=== PATIENT | female | born 2000 | race Hispanic/Latino ===

== ENCOUNTER 2022-04-13 13:25 | Emergency (ER) | payer OTHER ==
--- OUTSIDE RECORDS SUMMARY | 2022-04-13 13:29 | XMS REPORT | Continuity of Care Document ---
:2000 Author Organization [facility] t Address [address] [place] [address] Care Team Providers Name Role Phone PETRA PATE Primary Care Physician Unavailable ANDREY REYES Attending Clinician Unavailable MERI POP Attending Clinician Unavailable Wilian Jordan MD Attending Clinician Meri Pop DO Attending Clinician Petra Nash Attending Clinician PETRA PATE Attending Clinician Unavailable MERI POP Admitting Clinician Unavailable Meri Pop DO Admitting Clinician Payers Payer Name Policy Type Policy Number Effective Date Expiration Date [facility] [id number] 2020 [facility] MEDICAID 00:00:00 Problems Condition Condition Condition Status Onset Resolution Last Treating Co mments Source Name Details Category Date Date Treatment Clinician Date Disease Active 2020-09 Univers (spontaneo (spontaneo 2-12 it y of [place] vaginal [place] delivery[place] [facility] Single Single Disease Active 2020-09 Univers liveborn liveborn 2-12 ity of infant 00:00: [address] 38 weeks 38 weeks Disease Active 2020-09 Unive rs gestation gestation 2-10 ity of of of 00:00: [place] [facility] History of History of Disease Active 2020-09 U nivers placenta placenta 2-10 ity of previa previa 00:00: [address] Anemia of Anemia of Disease Active 2020-09 Uni vers mother in mother in 2-06 [place] , , [place] ante[place] antepartum 00 La dical Branch High-risk High-risk Disease Active Uni vers 5-11 ity of in first in first 00:00: [place] trimester trimester 00 Medi binu Branch Multiparit Multiparit Disease Active U nivers y y 5-11 ity of 00:00: [place] [address] Medical Branch Short Short Disease Active Univers interval interval 5-11 ity of between between 00:00: [place] pregnancie pregnancie 00 Me dical s s Branch affecting affecting in first in first trimester, trimester, antepartum antepartum IUGR IUGR Disease Active 2019-09 Univers (intrauter (intrauter 1-25 it y of ine growth ine [place] restrictio restrictio 00 Me dical n) n) Branch affecting affecting care of care of mother mother Allergies, Adverse Reactions, Alerts Allergy Allergy Status Severity Reaction(s) Onset Inactive Treating Comm ents Source Name Type Date Date Clinician NO KNOWN Drug Active Univers ALLERGIE Class ity of S [facility] Social History Social Habit Start Date Stop Date Quantity Comments Source ASSERTION 2020-12-04 [facility] 00:00:00 [facility] Exposure to Not sure [facility] SARS-CoV-2 [facility] [place] [facility] (event) [place] Alcohol intake 2021-08-13 2021-08-[address] [facility] 00:00:00 00:00:00 (finding) [facility] Tobacco use and 2020-04-14 2020-04-14 Never used Universit y of exposure 00:00:00 00:00:00 [facility] Sex Assigned At 2000 2000 Universit y of 00:00:00 00:00:00 [facility] Smoking Status Start Date Stop Date Source Never smoker [facility] Medications Ordered Filled Start Stop Current Ordering Indication Dosage Frequency Signature Comments Components Source Medication Medication Date Date Medication? Clinician (SIG) Name Name 2020-09 Yes [id number] 1{tbl} Take 1 Univers vitamin 2-12 tablet by ity of w/FA tablet 00:00: mouth [place] 00 daily. Medical Branch docusate 2020-09 Yes [id number] 240mg Take 1 U nivers calcium 240 2-12 capsule by it y of mg capsule 00:00: mouth [place] 00 daily as Medical needed for Branch Constipati on. ferrous 2020-09 Yes [id number] 325mg Take 1 Un ellen sulfate 325 2-12 tablet by ity of mg (65 mg 00:00: mouth 2 [place] iron) 00 (two) Medical tablet times Branch daily. ibuprofen 2020-09 Yes [id number] 600mg Take 1 Univers 600 mg 2-12 tablet by ity of tablet 00:00: mouth [place] 00 every 6 Medical (six) Branch hours as needed (Pain). Take with food or milk. rho(D) 2020-09 Yes 300ug 300 mcg, Univer s immune 2-11 Intramuscu ity of globulin 15:47: lar, ONCE, [place] as (RHOGAM) 22 For 1 Medical syringe 300 dose, Branch mcg Conditiona l, Routine ondansetron 2020-09 Yes 4mg 4 mg, Slow Univers (ZOFRAN 2-11 IV Push, ity of (PF)) 15:47: Q8HPRN, [place] injection 4 19 Starting Medi binu mg on Sat Branch 08/14/21 at 0947, Until Discontinu ed, Routine, Nausea and Vomiting (N/V) simethicone 2020-09 Yes 160mg 160 mg, Un ellen (GAS RELIEF 2-11 Oral, ity of (SIMETHICON 15:47: PC+HSPRN, [place] E)) 19 Starting Medical chewable on Sat Branch tablet 160 08/14/21 mg at 0947, Until Discontinu ed, Routine, Gas magnesium 2020-09 Yes 30mL 30 mL, Univer s hydroxide 2-11 Oral, ity of (MILK OF 15:47: QDAILYPRN, [place] MAGNESIA) 19 Starting Medica l 400 mg/5 mL on Sat Branch suspension 08/14/21 30 mL at 0947, Until Discontinu ed, Routine, Constipati on diphenhydrA 2020-09 Yes 25mg 25 mg, Univ ers MINE 2-11 Oral, ity of (BENADRYL) 15:47: Q6HPRN, [place] tablet 25 18 Starting Medica l mg on Sat Branch 08/14/21 at 0947, Until Discontinu ed, Routine, Sleep, Itching diphenhydrA 2020-09 Yes 25mg 25 mg, IV U nivers MINE-0.9 % 2-11 Piggyback, ity of sod.chlr 15:47: Administer [place] (BENADRYL) 18 over 30 Medica l 25 mg/50 mL Minutes, Bran ch piggyback Q6HPRN, 25 mg Starting on 08/14/21 at 0947, Until Discontinu ed, Routine, Itching docusate 2020-09 Yes 240mg 240 mg, Unive rs calcium 2-11 Oral, ity of (SURFAK) 15:47: QDAILYPRN, [place] capsule 240 18 Starting Medi binu mg on Sat Branch 08/14/21 at 0947, Until Discontinu ed, Routine, Constipati on benzocaine- 2020-09 Yes Topical, Un ellne menthol 2-11 PRN, ity of (DERMOPLAST 15:47: [place] ) 20-0.5 % 18 on [facility] Medical topical 08/14/21 Branch spray at 0947, Until Discontinu ed, Routine, Perineum discomfort oxytocin 2020-09- No at 999 Univer s (PITOCIN) 2-11 12-11 mL/hr, IV ity of 40 Units in 14:45: 14:45 Infusion, [place] lactated 00 :00 ONCE, 1 Medical ringers dose, On Branch 1,000 mL IV Sat infusion 08/14/21 at 0845, Routine ibuprofen 2020-09 Yes 600mg 600 mg, Univ ers (IBU) 2-11 Oral, ity of tablet 600 13:35: Q6HPRN, [place] mg 52 Starting Medical on Sat Branch 08/14/21 at 0735, Until Discontinu ed, Routine, Pain (scale 4-6) acetaminoph 2020-09 Yes 650mg 650 mg, Un ellen en 2-11 Oral, ity of (TYLENOL) 13:35: Q6HPRN, [place] tablet 650 52 Starting Medic al mg on Sat Branch 08/14/21 at 0735, Until Discontinu ed, Routine, Pain (scale 1-3) ibuprofen 2020-09 Yes 600mg 600 mg, Univ ers (IBU) 2-11 Oral, ity of tablet 600 13:16: Q6HPRN, [place] mg 14 Starting Medical on Sat Branch 08/14/21 at 0716, Until Discontinu ed, Routine, Pain (scale 1-3) proMETHazin 2020-09 No 25mg 25 mg, IV Univers e 10-15 Piggyback, ity of (PHENERGAN) 12:15: 12:20 ONCE, 1 [place] 25 mg in 00 :00 dose, On Medical NaCl 0.9% Sat Branch (NS) 50 mL 08/14/21 IV at 0615, piggyback Routine nalbuphine 2020-09 No 10mg 10 mg, Univ ers (NUBAIN) 10-15 Intravenou ity of injection 12:15: 11:13 s, ONCE, 1 [place] 10 mg 00 :00 dose, On Medical Sat Branch 08/14/21 at 0615, Routine D5W-LR IV 2020-09 Yes 1000mL at 125 Univ ers infusion 2-11 mL/hr, IV ity of 1,000 mL 02:30: Infusion, [place] 00 CONTINUOUS Medical , Starting Branch on Mon08/13/21 at 2030, Until Discontinu ed, Routine LR 1000 mL 2020-09 Yes 2mU/min at 6-120 Univers + oxytocin 2-11 mL/hr, IV ity of 20 units IV 02:22: Infusion, [place] Solution 47 TITRATE, Medical Starting Branch on Mon08/13/21 at 2021, Until Discontinu ed, LEI sodium 2020-09 Yes 30mL 30 mL, Univers citrate-cit 2-11 Oral, ity of cuauhtemoc acid 02:21: PRE-PROCED [place] (BICITRA) 33 URE ONCE, Medic al 500-334 1 dose, Branch mg/5 mL Starting solution 30 on Mon mL 08/13/21 at 2020, Until Discontinu ed, Routine, Surgery/Pr ocedure lidocaine 2020-09 Yes 50mL 50 mL, Univer s 1% 2-11 Infiltrati ity of (XYLOCAINE) 02:21: on, PRN - [place] 10 mg/mL (1 33 SEE Medical %) INSTRUCTIO Branch injection NS, 50 mL Starting on Mon08/13/21 at 2020, Until Discontinu ed, Routine, Local anesthesia , For laceration repair only as a local anesthetic as indicated. lidocaine 2020-09 Yes .3mL 0.3 mL, Unive rs 1% (PF) 2-11 Infiltrati ity of (XYLOCAINE) 02:21: on, PRN - [place] injection 33 SEE Medical 0.3 mL INSTRUCTIO Branch NS, Starting on Mon08/13/21 at 2020, Until Discontinu ed, Routine, Local anesthesia , For IV line placement only as a local anesthetic . lactated 2020-09 Yes 500mL at 999 Univer s ringers IV 2-11 mL/hr, 500 ity of infusion 02:21: mL, IV [place] 500 mL 33 Infusion, Medical PRN - SEE Branch INSTRUCTIO NS, Starting on Mon08/13/21 at 2020, Until Discontinu ed, Routine ferrous 2020-09 Yes [id number] 325mg Take 1 Un ellen sulfate 325 2-06 tablet by ity of mg (65 mg 00:00: mouth 2 [place] iron) 00 (two) Medical tablet times Branch daily. ascorbic 2020-09 Yes [id number] 500mg Take 1 U nivers acid, 2-06 tablet by ity of vitamin C, 00:00: [place] 500 mg 00 (three) Medical tablet times Branch daily. ascorbic 2020-09 Yes [id number] 500mg Take 1 U nivers acid, 2-06 tablet by ity of vitamin C, 00:00: [place] 500 mg 00 (three) Medical tablet times Branch daily. ferrous 2020-09- No [id number] 325mg Take 1 U nivers sulfate 325 2-06 12-12 tablet by it y of mg (65 mg 00:00: 00:00 [place] iron) 00 :00 (two) Medical tablet times Branch daily. PNV 67-iron Yes [id number] 1{capsu Take 1 Univers ps-folate 5-11 le} capsule by ity of no.1-dha 00:00: mouth [place] (VITAFOL 00 daily. Medical ULTRA) 29 Branch mg iron- 1 mg-200 mg Cap PNV 67-iron 202- No [id number] 1{capsu Take 1 Univers ps-folate 5-11 12-12 le} capsule by ity of no.1-dha 00:00: 00:00 mouth [place] (VITAFOL 00 :00 daily. Medical ULTRA) 29 Branch mg iron- 1 mg-200 mg Cap Immunizations Ordered Filled Immunization Date Status Comments Sourc e Immunization Name Name TD 2021-06-10 Completed University of 00:00:00 [facility] Influenza Virus 2021-06-10 Completed Universit y of Vaccine Quad IM, 00:00:00 [facility] dical Preserv and ABX Branch Free 6 MO-64 YRS TDAP 2021-06-10 Completed University of 00:00:00 [facility] Influenza Virus 2021-06-10 Completed Universit y of Vaccine Quad IM, 00:00:00 [facility] dical Preserv and ABX Branch Free 6 MO-64 YRS HPV9 2020-08-01 Completed University 00:00:00 [facility] HPV9 2020-08-01 Completed University of 00:00:00 [facility] Influenza Virus 2020-06-16 Completed Universit y of Vaccine Quad .5 mL 00:00:00 [facility] 6+ MO Branch Influenza Virus 2020-06-16 Completed Universit y of Vaccine Quad .5 mL 00:00:00 [facility] 6+ MO Branch TDAP 2020-06-02 Completed University 00:00:00 [facility] TDAP 2020-06-02 Completed University 00:00:00 [facility] Vital Signs Vital Name Observation Time Observation Value Comments Source Systolic blood 2021-08-15 14:54:00 104 mm[Hg] Univer sity of pressure [facility] Diastolic blood 2021-08-15 14:54:00 59 mm[Hg] Unive rsity of pressure [facility] Heart rate 2021-08-15 14:54:00 75 /min [facility] Body temperature 2021-08-15 14:54:00 36.44 [facility] Respiratory rate 2021-08-15 14:54:00 18 /min [facility] Oxygen saturation in 2021-08-15 14:54:00 99 /min [facility] Arterial blood by [facility] Pulse oximetry [place] Body weight 2021-08-14 02:04:00 64.8 kg [facility] Procedures Procedure Date / Time Performing Clinician Source Performed CBC WITH DIFF 2021-08-15 10:09:00 Flo Garcia [facility] VENOUS CORD GAS 2021-08-14 13:15:00 Kendy Wetzel [facility] CBC WITH DIFF 2021-08-14 03:26:00 [facility] HEPATITIS B SURFACE 2021-08-14 03:26:00 Kendy Wetzel [facility] ANTIGEN [facility] HB ABO GROUPING 2021-08-14 03:26:00 [facility] RHO (D) IMMUNE GLOBULIN 2021-08-14 03:26:00 JenusaitisAlejandrakelly Uni [facility] GALV ONLY - SYPHILIS 2021-08-14 03:26:[address] [facility] IGG/IGM [facility] COVID-19 (ID NOW RAPID 2021-08-14 02:09:00 Meri Pop [facility] TESTING) [facility] LAB ONLY COVID 2021-08-14 02:09:00 Meri Pop [facility] INTERPRETATION [facility] Encounters Start End Encounter Admission Attending Care Care Encounter Source Date/Time Date/Time Type Type Clinicians Facility Department ID 2021-09-27 2021-09-27 [id number] Univers 14:45:00 [facility]:45[facility] [id number] 2021-09-27 2021-09-27 [facility] [id number] Univers 14:45:00 14:45:[address] [facility] [facility] 2021-08-13 2021-08-15 Inpatient P LINDA [facility] [id number] Univers 19:46:00 16:49:00 MERI [facility] [place] [facility] 2021-08-13 2021-08-15 Hospital Wilian Jordan [id number] Univers 19:46:00 16:49:00 Encounter Meri Ppo [id number] ity [facility] [id number] [place] [id number] [place] [id number] Branch 2021-08-13 2021-08-13 Telephone [facility] [id number] Univers 00:00:00 00:00:00 Petra Jose SENIOR PROGRAMMER [id number] it y of REGIONAL [id number] [place] as MATERNAL [id number] Med ical & CHILD [address] [place] [address] 2021-08-10 2021-08-10 Outpatient Deep [facility] [id number] Univers 12:45:00 12:45:00 PETRA garcía of [facility] Results Test Description Test Time Test Comments Results Result Comments Source CBC with Differential 2021-08-15 10:22:58 Test Item Value Reference Range Interpretation Comme nts WBC (test code = 6690-2) See_Comment H [A utomated message] The system which ge nerated this result transmit brenna reference range: 4.30 - 1 1.10 10*3/?L. The reference r quirino was not used to interpr et this result as normal/abnor mal. RBC (test code = 789-8) See_Comment L [Au tomated message] The system which ge nerated this result transmit brenna reference range: 3.93 - 5 .25 10*6/?L. The reference r quirino was not used to interpr et this result as normal/abnor mal. HGB (test code = 718-7) 9.8 g/dL 11.6-15.0 L HCT (test code = 4544-3) 29.2 % 35.7-45.2 L MCV (test code = 787-2) 82.5 fL 80.6-95.5 MCH (test code = 785-6) 27.7 pg 25.9-32.8 MCHC (test code = 786-4) 33.6 g/dL 31.6-35.1 RDW-SD (test code = 33972-2) 35.8 fL 39.0-49.9 L RDW-CV (test code = 788-0) 11.9 % 12.0-15.5 L PLT (test code = 777-3) See_Comment [Au tomated message] The system which ge nerated this result transmit brenna reference range: 166 - 35 8 10*3/?L. The reference range was not used to interpret th is result as normal/abnormal . MPV (test code = 16030-9) 11.0 fL 9.5-12.9 NRBC/100 WBC (test code = See_Comment [ Automated message] The 1340995673) system which ge nerated this result transmit brenna reference range: 0.0 - 10 .0 /100 WBCs. The reference r quirino was not used to interpr et this result as normal/abnor mal. NRBC x10^3 (test code = <0.01 See_Comment [Au tomated message] The 3954569981) system which ge nerated this result transmit brenna reference range: 10*3/?L. The reference range was not u sed to interpret this result as normal/abnormal . GRAN MAT (NEUT) % (test code 66.5 % = 770-8) IMM GRAN % (test code = 0.40 % 6238988958) LYMPH % (test code = 736-9) 24.7 % MONO % (test code = 5905-5) 7.4 % EOS % (test code = 713-8) 0.6 % BASO % (test code = 706-2) 0.4 % GRAN MAT x10^3(ANC) (test 7.50 10*3/uL 1.88-7.09 H code = 6083697091) IMM GRAN x10^3 (test code = 0.05 10*3/uL 0.00-0.06 3102498302) LYMPH x10^3 (test code = 2.79 10*3/uL 1.32-3.29 731-0) MONO x10^3 (test code = 0.84 10*3/uL 0.33-0.92 742-7) EOS x10^3 (test code = 0.07 10*3/uL 0.03-0.39 711-2) BASO x10^3 (test code = 0.04 10*3/uL 0.01-0.07 704-7) Lab Interpretation (test Abnormal code = 77684-9) [facility] [place] [id number] 16:03:12 Test Item Value Reference Range Interpretation Comments Syphilis IgG/IgM (test Non-reactive Non-reactive code = 23079-2) KIRILL (test code = KIRILL) Non-reactive - No serologic evidence of T. pallidum infection. Cannot exclude incubating or early syphilis. Submit a second specimen in 2-4 weeks if syphilis is clinically suspected. Equivocal - Further testing to follow. Reactive - Further testing to follow. Lab Interpretation (test Normal code = 43415-9) [facility] IMMUNE [id number] 15:52:16 Test Item Value Reference Range Interpretation Comments RHIG CANDIDATE? No- see comment Patient i s not a (test code = candidate for R hIg- 5055) Patient is Rh Positive.Perfor med at [facility] Laboratory Services - [facility] Blood [address] [place] [address]Mqec Free: [phone] A No. [id number] [facility] CORD [id number] 13:26:48 Test Item Value Reference Range Interpretation Comments VENOUS BASE EXCESS, mEq/L CORD (test code = 4566039651) VENOUS PH, CORD (test 7.25-7.45 code = 5827465533) VENOUS PC02, CORD See_Comment [Automate d message] The (test code = system which ge nerated 8968189940) this result tra nsmitted reference range : 27 - 49 mmHg. The refer ence range was not used to interpret this result as normal/abnormal . VENOUS PO2, CORD (test See_Comment [Aut omated message] The code = 1194720265) system wh ich generated this result tra nsmitted reference range : 17 - 41 mmHg. The refer ence range was not used to interpret this result as normal/abnormal . VENOUS BICARBONATE, See_Comment QUES [Au tomated message] CORD (test code = The system which generated 7451871234) this result tra nsmitted reference range : 12 - 29 mEq/L. The refe rence range was not used to interpret this result as normal/abnormal . [facility] CORD [id number] 13:25:53 Test Item Value Reference Range Interpretation Comments BASE EXCESS, CORD mEq/L QUES (test code = 8549841093) AC PH, CORD (BEAKER) 7.18-7.38 (test code = 8049242661) PC02, CORD (test code See_Comment [Auto mated message] The = 3349303900) system which g enerated this result transmit brenna reference range : 32 - 66 mmHg. The refer ence range was not used to interpret this result as normal/abnormal . PO2, CORD (test code See_Comment [Autom ated message] The = 5061296466) system which g enerated this result transmit brenna reference range : 10 - 30 mmHg. The refer ence range was not used to interpret this result as normal/abnormal . BICARBONATE, CORD See_Comment [Automate d message] The (test code = system which ge nerated this 6743466831) result transmit brenna reference range : 17 - 27 mEq/L. The refe rence range was not used to interpret this result as normal/abnormal . [facility]atitis B Surface [id number] 04:31:18 Test Item Value Reference Range Interpretation Comments HBsAg Semi-Quantitative (test code = Negative Negative 5195-3) [facility] and Screen - ONCE [id number] 04:15:35 Test Item Value Reference Range Interpretation Comments ABO & RH (test code O POSITIVE Performe d at [facility] = 20) Laboratory Serv [facility] Blood Bank3 [address] [facility] [place] [facility] s [address]Ximn Free: [phone] A No. [id number] IAT (test code = Negative Performed a t [facility] 1185) Laboratory Serv [facility] Blood [facility]3 [address] [facility] [place] [facility] s [address]Uxly Free: [phone] A No. [id number] [facility] WITH [id number] 03:37:52 Test Item Value Reference Range Interpretation Comments WBC (test code = See_Comment [Automated 9790-2) message] The sy stem which generated this result transmitted reference range : 4.30 - 11.10 10*3/?L. The reference range was not used to interpret this result as normal/abnormal . RBC (test code = See_Comment L [Automated 659-8) message] The sy stem which generated this result transmitted reference range : 3.93 - 5.25 10*6/?L. The reference range was not used to interpret this result as normal/abnormal . HGB (test code = 10.0 g/dL 11.6-15.0 L 718-7) HCT (test code = 30.1 % 35.7-45.2 L 4544-3) MCV (test code = 82.5 fL 80.6-95.5 787-2) MCH (test code = 27.4 pg 25.9-32.8 785-6) MCHC (test code = 33.2 g/dL 31.6-35.1 786-4) RDW-SD (test code = 36.1 fL 39.0-49.9 L 45284-7) RDW-CV (test code = 12.0 % 12.0-15.5 788-0) PLT (test code = See_Comment [Automated 777-3) message] The sy stem which generated this result transmitted reference range : 166 - 358 10*3/ ?L. The reference r quirino was not used to interpret this result as normal/abnormal . MPV (test code = 10.8 fL 9.5-12.9 23161-3) NRBC/100 WBC (test See_Comment [Automat ed code = 9705814410) message] The system which generated this result transmitted reference range : 0.0 - 10.0 /100 WBCs. The refer ence range was not u sed to interpret th is result as normal/abnormal . NRBC x10^3 (test code <0.01 See_Comment [Auto mated = 9853701283) message] The s ystem which generated this result transmitted reference range : 10*3/?L. The reference range was not used to interpret this result as normal/abnormal . GRAN MAT (NEUT) % 67.0 % (test code = 770-8) IMM GRAN % (test code 0.30 % = 1892560649) LYMPH % (test code = 26.1 % 736-9) MONO % (test code = 5.7 % 5905-5) EOS % (test code = 0.7 % 713-8) BASO % (test code = 0.2 % 706-2) GRAN MAT x10^3(ANC) 6.55 10*3/uL 1.88-7.09 (test code = 1094233332) IMM GRAN x10^3 (test 0.03 10*3/uL 0.00-0.06 code = 5043318335) LYMPH x10^3 (test code 2.55 10*3/uL 1.32-3.29 = 731-0) MONO x10^3 (test code 0.56 10*3/uL 0.33-0.92 = 742-7) EOS x10^3 (test code = 0.07 10*3/uL 0.03-0.39 711-2) BASO x10^3 (test code <0.03 0.01-0.07 = 704-7) Lab Interpretation Abnormal (test code = 10132-4) [facility]
[2022-04-13] MEDS ORDERED: ACETAMINOPHEN 500 MG TAB ONE (14:23)
[2022-04-13] MEDS ORDERED: IBUPROFEN 400 MG TAB ONE (14:32)
[2022-04-13] MEDS ORDERED: BUPIVACAINE 0.5% PF 10 ML VIAL ONE (14:35)
[2022-04-13] MEDS ORDERED: LIDOCAINE 1% MPF 5 ML VIAL ONE (14:35)
--- NOTE | 2022-04-13 15:14 | RAD REPORT ---
EXAM DESCRIPTION: RAD - Foot Left 3 View - 04/13/2022 2:56 pm CLINICAL HISTORY: PAIN COMPARISON: No comparisons FINDINGS: No fracture, dislocation or periosteal reaction. No acute or destructive bony process. No air or foreign body in the soft tissues. IMPRESSION: No acute or destructive changes to the first toe. No air or foreign body in the soft tis sues.
--- NOTE | 2022-04-13 15:36 | ER ---
Nurse's Notes [facility] Name: Sindhu Hudson Age: 21 yrs Sex: Female : 2000 Arrival Date: 04/13/2022 Time: 13:30 Bed Treatment Private MD: Diagnosis: Cellulitis of left toe-left big toe Presentation: 04/13 13:58 Chief complaint: Patient states: left big toe infected on left aspect of toenail. ld1 Coronavirus screen: Vaccine status: Patient reports being unvaccinated. Ebola Screen: No symptoms or risks identified at this time. Initial Sepsis Screen: Does the patient meet any 2 criteria? No. Patient's initial sepsis screen is negative. Does the patient have a suspected source of infection? No. Patient's initial sepsis screen is negative. Risk Assessment: Do you want to hurt yourself or someone else? Patient reports no desire to harm self or others. Onset of symptoms was April 06, 2022. 13:58 Method Of Arrival: Ambulatory ld1 13:58 Acuity: MADELEINE 4 ld1 Triage Assessment: 14:00 General: Appears in no apparent distress. comfortable, Behavior is calm, cooperative, ld1 appropriate for age. Pain: Complains of pain in Left first toenail Pain radiates to dorsum of left foot and left first toe Pain currently is 7 out of 10 on a pain scale. Quality of pain is described as sharp, shooting, stabbing, Pain began 1 week ago Is intermittent, Alleviated by rest, repositioning, Aggravated by increased activity, weight bearing. Neuro: Level of Consciousness is awake, alert, obeys commands, Oriented to person, place, time, situation. Cardiovascular: Capillary refill < 3 seconds Patient's skin is warm and dry. Respiratory: Airway is patent Respiratory effort is even, unlabored. GI: No signs and/or symptoms were reported involving the gastrointestinal system. : No signs and/or symptoms were reported regarding the genitourinary system. Musculoskeletal: Range of motion: intact in all extremities, Swelling present in left first toe. 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 - Social history:: Smoking status: Patient denies any tobacco usage or history of. Patient/guardian denies using alcohol, street drugs. Screenin:02 Abuse screen: Denies threats or abuse. Denies injuries from another. Nutritional iw screening: No deficits noted. Tuberculosis screening: No symptoms or risk factors identified. Fall Risk None identified. Assessment: 15:02 General: Appears in no apparent distress. Behavior is calm, cooperative. Pain: iw Complains of pain in left first toe. Neuro: Young Agitation-Sedation Scale (RASS): 0 - Alert and Calm Level of Consciousness is awake, alert, obeys commands, Oriented to person, place, time, situation. Respiratory: Respiratory effort is even, unlabored, Respiratory pattern is regular. Derm: Musculoskeletal: Swelling present in left first toe and Left first toenail. Vital Signs: 13:58 BP 129 / 76; Pulse 86; Resp 18; Temp 97.1(TE); Pulse Ox 100% on R/A; Weight 65.77 kg; ld1 Height 5 ft. 1 in. (154.94 cm); Pain 7/10; 13:58 Body Mass Index 27.40 (65.77 kg, 154.94 cm) ld1 ED Course: 13:30 Patient arrived in ED. rg4 13:36 Fermin Sepulveda PA is PHCP. cp 13:36 Tera Rojas MD is Attending Physician. cp 14:00 Triage completed. ld1 14:00 Arm band placed on left wrist. ld1 14:13 Carmen Cabrera, RN is Primary Nurse. iw 15:02 XRAY Foot LEFT 3 View In Process Unspecified. EDMS 15:32 James Ramos DPM is Referral Physician. cp 15:48 Assist provider with nail repair of ingrown nail of left great toe Performed by Fermin iw Coco PADILLA. Patient did not have IV access during this emergency room visit. 15:49 Patient has correct armband on for positive identification. iw Administered Medications: 14:26 Not Given (taken PTAa): Tylenol 1000 mg PO once iw 14:26 Drug: Ibuprofen 800 mg Route: PO; iw 14:50 Follow up: Response: No adverse reaction iw Medication: 15:49 VIS not applicable for this client. iw Outcome: 15:35 Discharge ordered by . cp 15:48 Discharged to home ambulatory, with family. iw 15:48 Condition: good 15:48 Discharge instructions given to patient, Instructed on discharge instructions, follow up and referral plans. medication usage, Demonstrated understanding of instructions, follow-up care, medications, Prescriptions given X 2. 15:49 Patient left the ED. iw Signatures: Dispatcher [employer] EDCarmen Munson RN RN iw Fermin Sepulveda PA PA cp Garcia, Rubi rg4 Ruby Molina RN RN ld1
--- NOTE | 2022-04-13 15:36 | EDPHYS ---
Physician Documentation [facility] Name: Sidnhu Hudson Age: 21 yrs Sex: Female : 2000 Arrival Date: 04/13/2022 Time: 13:30 Bed Treatment Private MD: ED Physician Tera Rojas HPI: 04/13 14:20 This 21 yrs old Female presents to ER via Ambulatory with complaints of Toe cp Infection. 14:20 The patient presents with pain, that is acute, swelling, tenderness. The complaints cp affect the left first toe. Context: resulted from an unknown cause, the patient can fully bear weight, the patient is able to ambulate, with mild difficulty, Problem is a result from a previous injury: No. Onset: The symptoms/episode began/occurred 1 week(s) ago. Modifying factors: the symptoms are aggravated by weight bearing. Associated signs and symptoms: The patient has no apparent associated signs or symptoms. 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 - Social history:: Smoking status: Patient denies any tobacco usage or history of. Patient/guardian denies using alcohol, street drugs. ROS: 14:25 Constitutional: Negative for body aches, chills, fever, poor PO intake. cp 14:25 ENT: Negative for drainage from ear(s), ear pain, sore throat, difficulty swallowing, cp difficulty handling secretions. 14:25 Respiratory: Negative for cough, shortness of breath, wheezing. 14:25 Abdomen/GI: Negative for abdominal pain, nausea, vomiting, and diarrhea. 14:25 MS/extremity: Positive for erythema, pain, swelling, tenderness, of the left first toe, Negative for paresthesias. 14:25 All other systems are negative. Exam: 14:30 Constitutional: The patient appears in no acute distress, alert, awake, non-toxic, well cp developed, well nourished. 14:30 Head/Face: Normocephalic, atraumatic. cp 14:30 Cardiovascular: Rate: normal. 14:30 Respiratory: the patient does not display signs of respiratory distress, Respirations: normal, no use of accessory muscles, no retractions. 14:30 Abdomen/GI: Exam negative for discomfort, distension, guarding, Inspection: abdomen appears normal. 14:30 Musculoskeletal/extremity: Extremities: grossly normal except: noted in the left first toe: pain, swelling noted lateral side extending to plantar surface of left first toe, noted erythema, scant colored drainage, marked tenderness to palpation, ROM: full active range of motion, in the left first toe, Perfusion: the extremity is normally perfused throughout, the left first toe Sensation intact. Vital Signs: 13:58 BP 129 / 76; Pulse 86; Resp 18; Temp 97.1(TE); Pulse Ox 100% on R/A; Weight 65.77 kg; ld1 Height 5 ft. 1 in. (154.94 cm); Pain 7/10; 13:58 Body Mass Index 27.40 (65.77 kg, 154.94 cm) ld1 Procedures: 15:35 Digital block of left first toe performed using 6 ccs of mixture of 0.5% Marcaine and cp 1% lidocaine. Examination of digit shows removed lateral side of nail with no extension into lateral side of left first toe concerning for ingrown nail. MDM: 14:03 Patient medically screened. cp 15:35 Data reviewed: vital signs, nurses notes, radiologic studies, plain films. cp 15:35 Differential diagnosis: closed fracture, cellulitis, abscess, ingrown nail. Test cp interpretation: by ED physician or midlevel provider: plain radiologic studies. Counseling: I had a detailed discussion with the patient and/or guardian regarding: the historical points, exam findings, and any diagnostic results supporting the discharge/admit diagnosis, radiology results, the need for outpatient follow up, a barber, to return to the emergency department if symptoms worsen or persist or if there are any questions or concerns that arise at home. Response to treatment: the patient's symptoms have mildly improved after treatment. 04/13 14:08 Order name: XRAY Foot LEFT 3 View; Complete Time: 15:31 cp 04/13 15:31 Interpretation: Reviewed report. cp Administered Medications: 14:26 Not Given (taken PTAa): Tylenol 1000 mg PO once iw 14:26 Drug: Ibuprofen 800 mg Route: PO; iw 14:50 Follow up: Response: No adverse reaction iw Disposition Summary: 04/13/22 15:35 Discharge Ordered Location: Home cp Problem: new cp Symptoms: have improved cp Condition: Stable cp Diagnosis - Cellulitis of left toe - left big toe cp Followup: cp - With: James Ramos DPM - When: 2 - 3 days - Reason: Worsening of condition Discharge Instructions: - Discharge Summary Sheet cp - Cellulitis, Adult cp - Ingrown Toenail cp Forms: - Medication Reconciliation Form cp - Thank You Letter cp - Antibiotic Education cp - Prescription Opioid Use cp Prescriptions: - Clindamycin HCl 300 mg Oral Capsule - take 1 capsule by ORAL route every 6 hours for 10 days; 40 capsule; Refills: 0, cp Product Selection Permitted - Ibuprofen 800 mg Oral Tablet - take 1 tablet by ORAL route every 8 hours As needed take with food; 30 tablet; cp Refills: 0, Product Selection Permitted Signatures: Dispatcher [employer] Carmen Walden RN RN iw Fermin Sepulveda PA PA cp Ruby Molina RN RN ld1
[2022-04-13 16:21] VITALS: BP 129/76; TEMP 97.1; O2SAT 100
== END 2022-04-13 15:49 | disposition home or self-care (01) ==
LOC: ER 13:25
DX: L03.032 Cellulitis of left toe (principal)
CPT/HCPCS: 99284

== ENCOUNTER 2022-06-27 12:51 | Emergency (ER) | payer OTHER ==
--- OUTSIDE RECORDS SUMMARY | 2022-06-27 12:55 | XMS REPORT | Continuity of Care Document ---
:2000 Author Organization [facility] t Address [address] [place] [address] Care Team Providers Name Role Phone PETRA PATE Primary Care Physician Unavailable SERENITY REYES Attending Clinician Unavailable LIONEL JORDAN Attending Clinician Unavailable MERI MCKEON Attending Clinician Unavailable Lionel Jordan MD Attending Clinician Meri Mckeon DO Attending Clinician Ultrasound, Ang-m Attending Clinician Unavailable Petra Nash Attending Clinician PETRA PATE Attending Clinician Unavailable Ultrasound, Adc m Attending Clinician Unavailable Jihan Bernal MD Attending Clinician JIHAN BERNAL Attending Clinician Unavailable DANDRE CORTES Attending Clinician Unavailable TK MADSEN Attending Clinician Unavailable Tk Madsen MD Attending Clinician [phone] Su Bautista CNM Attending Clinician Doctor Unassigned, [place] Attending Clinician Unavailable Lab, [facility] Attending Clinician Unavailable Sandy Laguna MD, Gillis Attending Clinician [phone], [facility] Usg Room Attending Clinician Unavailable Elvie Falcon Attending Clinician Nurse, Sylvie Urgent Attending Clinician Unavailable UNKNOWN, ATTENDING Attending Clinician Unavailable Unknown, Attending Attending Clinician Unavailable Peterson Marc MD Attending Clinician Reyes R D INTERN, Serenity Adame Attending Clinician Jonh ATKINS, Kevin Reinoso Attending Clinician Lilia Sandoval MD Attending Clinician Lab, [facility] Attending Clinician Unavailable Winnie WHPREETPMiya C Attending Clinician [phone] ADABDULLAHI MENG L Attending Clinician Unavailable MERI MCKEON Admitting Clinician Unavailable Meri Mckeon DO Admitting Clinician Jonh ATKINS, Kevin Reinoso Admitting Clinician Payers Payer Name Policy Type Policy Number Effective Date Expiration Date [facility] [id number] 2020 CHOICE MEDICAID 00:00:00 Problems Condition Condition Condition Status Onset Resolution Last Treating Co mments Source Name Details Category Date Date Treatment Clinician Date Disease Active 2020-09 Univers (spontaneo (spontaneo 2-12 [place] y [place] vaginal [place] delivery[place] 00 [facility] Single Single Disease Active 2020-09 Univers liveborn liveborn 2-12 ity of 00:00: [address] 38 weeks 38 weeks Disease Active 2020-09 Unive rs gestation gestation 2-10 ity of of of 00:00: [place] 00 [facility] History of History of Disease Active 2020-09 U nivers placenta placenta 2-10 ity of previa previa 00:00: [place] 00 [facility] Anemia of Anemia of Disease Active 2020-09 Uni vers mother in mother in 2-06 [place]y of , , [place] ante[place] antepartum 00 [facility] High-risk High-risk Disease Active Uni vers 5-11 ity of in first in first 00:00: [place] trimester trimester 00 [facility] Multiparit Multiparit Disease Active U nivers y y 5-11 ity of 00:00: [place] 00 [facility] Short Short Disease Active Univers interval interval 5-11 ity of between between 00:00: [place] pregnancie pregnancie 00 Me dical s s Branch affecting affecting in first in first trimester, trimester, antepartum antepartum IUGR IUGR Disease Active 2019-09 Univers (intrauter (intrauter 1-25 it y of ine growth ine growth 00:00: Re[place] sunshine restrictio restrictio 00 Me dical n) n) Branch affecting affecting care of care of mother mother Allergies, Adverse Reactions, Alerts Allergy Allergy Status Severity Reaction(s) Onset Inactive Treating Comm ents Source Name Type Date Date Clinician NO KNOWN Drug Active Univers ALLERGIE Class ity of S [facility] Social History Social Habit Start Date Stop Date Quantity Comments Source ASSERTION 2020-12-04 [facility] 00:00:00 [facility] Exposure to Not sure [facility] SARS-CoV-[address] [facility] (event) [place] Alcohol intake 2021-08-13 2021-08-13 Ex-drinker [facility] 00:00:00 00:00:00 (finding) [facility] Tobacco use and 2020-04-14 2020-04-14 Never used Universit y of exposure 00:00:00 00:00:00 [facility] Sex Assigned At 2000 2000 Universit y of 00:00:00 00:00:00 [facility] Smoking Status Start Date Stop Date Source Never smoker [facility] Medications Ordered Filled Start Stop Current Ordering Indication Dosage Frequency Signature Comments Components Source Medication Medication Date Date Medication? Clinician (SIG) Name Name 2020-09 Yes [id number] 1{tbl} Take 1 Univers vitamin 2-12 tablet by ity of w/FA tablet 00:00: mouth [place] 00 daily. Medical Branch docusate 2020-09 Yes [id number] 240mg Take 1 U nivers calcium 240 2-12 capsule by it y of mg capsule 00:00: mouth [place] 00 daily as Medical needed for Branch Constipati on. ferrous 2020-09 Yes [id number] 325mg Take 1 Un ellen sulfate 325 2-12 tablet by ity of mg (65 mg 00:00: mouth 2 [place] iron) 00 (two) Medical tablet times Branch daily. ibuprofen 2020-09 Yes [id number] 600mg Take 1 Univers 600 mg 2-12 [...] IV Push, ity of (PF)) 15:47: Q8HPRN, [place] injection 4 19 Starting Medi binu mg on Sat Branch 08/14/21 at 0947, Until Discontinu ed, Routine, Nausea and Vomiting (N/V) simethicone 2020-09 Yes 160mg 160 mg, Un ellen (GAS RELIEF 2-11 Oral, ity of (SIMETHICON 15:47: PC+HSPRN, [place] E)) 19 Starting Medical chewable on [facility] Branch tablet 160 08/14/21 mg at 0947, [...] Constipati on benzocaine- 2020-09 Yes Topical, Un ellen menthol 2-11 PRN, ity of (DERMOPLAST 15:47: Starting [place] ) 20-0.5 % 18 on [facility] Medical topical 08/14/21 Branch spray at 0947, Until Discontinu ed, Routine, Perineum discomfort oxytocin 2020-09- No at 999 Univer s (PITOCIN) 2-11 12-11 mL/hr, IV ity of 40 Units in 14:45: 14:45 Infusion, [place] lactated 00 :00 ONCE, 1 Medical ringers [...] 2-11 Oral, ity of (TYLENOL) 13:35: Q6HPRN, [place] tablet 650 52 Starting Medic al mg on Sat Branch 08/14/21 at 0735, Until Discontinu ed, Routine, Pain (scale 1-3) ibuprofen 2020-09 Yes 600mg 600 mg, Univ ers (IBU) 2-11 Oral, ity of tablet 600 13:16: Q6HPRN, [place] mg 14 Starting Medical on Sat Branch 08/14/21 at 0716, Until Discontinu ed, Routine, Pain (scale 1-3) proMETHazin 2020-09- No 25mg 25 mg, IV Univers e 10-15 12-11 Piggyback, ity of (PHENERGAN) 12:15: 12:20 ONCE, 1 [place] 25 mg in 00 :00 dose, On Medical NaCl 0.9% [facility] Branch (NS) 50 mL 08/14/21 IV at 0615, piggyback Routine nalbuphine 2020-09- No 10mg 10 mg, Univ ers (NUBAIN) 10-15 12-11 Intravenou ity of injection 12:15: 11:13 s, [...] Until Discontinu ed, Routine ferrous 2020-09 Yes [id number] 325mg Take 1 Un ellen sulfate 325 2-06 tablet by ity of mg (65 mg 00:00: mouth 2 [place] iron) 00 (two) Medical tablet times Branch daily. ascorbic 2020-09 Yes [id number] 500mg Take 1 U nivers acid, 2-06 tablet by ity of vitamin C, 00:00: mouth [place] 500 mg 00 (three) Medical tablet times Branch daily. ascorbic 2020-09 Yes [id number] 500mg Take 1 U nivers acid, 2-06 tablet by ity of vitamin C, 00:00: [place] 3 [place] 500 mg 00 (three) Medical tablet times Branch daily. ferrous 2020-09- No [id number] 325mg Take 1 U nivers sulfate 325 2-06 12-12 tablet by it y of mg (65 mg 00:00: 00:00 [place] iron) 00 :00 (two) Medical tablet times Branch daily. PNV 67-iron Yes [id number] 1{capsu Take 1 Univers ps-folate 5-11 le} capsule by ity of no.1-dha 00:00: mouth [place] (VITAFOL 00 daily. Medical ULTRA) 29 Branch mg iron- 1 mg-200 mg Cap PNV 67-iron 2020- No [id number] 1{capsu Take 1 Univers ps-folate 5-11 12-12 le} capsule by ity of no.1-dha 00:00: 00:00 mouth [place] (VITAFOL 00 :00 daily. Medical ULTRA) 29 Branch mg iron- 1 mg-200 mg Cap Immunizations Ordered Filled Immunization Date Status Comments [facility] e Immunization Name Name TDAP 2021-06-10 Completed University of 00:00:00 [facility] Influenza Virus 2021-06-10 Completed Universit y of Vaccine Quad IM, 00:00:00 [place] Me dical Preserv and ABX Branch Free 6 MO-64 YRS TDAP 2021-06-10 Completed University of 00:00:00 [facility] Influenza Virus 2021-06-10 Completed Universit y of Vaccine Quad IM, 00:00:00 [place] Me dical Preserv and ABX Branch Free 6 MO-64 YRS HPV9 2020-08-01 Completed University of 00:00:00 [facility] HPV9 2020-08-01 Completed University of 00:00:00 [facility] Influenza Virus 2020-06-16 Completed Universit y of Vaccine Quad .5 mL 00:00:[address] [facility] IM 6+ [place] Branch Influenza Virus 2020-06-16 Completed Universit y of Vaccine Quad .5 mL 00:00:[address] [facility] IM 6+ [place] Branch TDAP 2020-06-02 Completed University 00:00:00 [facility] TDAP 2020-06-02 Completed University 00:00:00 [facility] Vital Signs Vital Name Observation Time Observation Value Comments Source Systolic blood 2021-08-15 14:54:00 104 mm[Hg] Univer sity of pressure [facility] Diastolic blood 2021-08-15 14:54:00 59 mm[Hg] [facility] Heart rate 2021-08-15 14:54:00 75 /min [facility] Body temperature 2021-08-15 14:54:00 36.44 Isatu [facility] Respiratory rate 2021-08-15 14:54:00 18 /min [facility] Oxygen saturation in 2021-08-15 14:54:00 99 /min [facility] Arterial blood by [facility] Pulse oximetry [place] Body weight 2021-08-14 02:04:[address] [facility] Procedures Procedure Date / Time Performing Clinician Source Performed CBC WITH DIFF 2021-08-15 10:09:00 Flo Garcia [facility] VENOUS CORD GAS 2021-08-14 13:15:00 Damari [facility] CBC WITH DIFF 2021-08-14 03:26:00 Damari [facility] HEPATITIS B SURFACE 2021-08-14 03:26:00 Kendy Wetzel [facility] ANTIGEN [facility] HB ABO GROUPING 2021-08-14 03:26:00 Damari [facility] RHO (D) IMMUNE GLOBULIN 2021-08-14 03:26:00 Flo Garcia [facility] GALV ONLY - SYPHILIS 2021-08-14 03:26:00 Kendy Wetzel [facility] IGG/IGM [facility] COVID-19 (ID NOW RAPID 2021-08-14 02:09:00 Meri Mckeon [facility] [place] [facility] TESTING) [facility] LAB ONLY COVID 2021-08-14 02:09:00 Meri Mckeon o f [place] INTERPRETATION [facility] Encounters Start End Encounter Admission Attending Care Care Encounter Source Date/Time Date/Time Type Type Clinicians Facility Department ID 2021-07-03 Outpatient [facility] [id number] Univers [facility] 2021-09-27 2021-09-27 [facility] [id number] Univers 14:45:00 14:45:00 ROSHUNDA ricky o f [facility] 2021-08-20 2021-08-20 Outpatient P JULIAN [facility] [id number] Univers 09:00:00 09:00:00 LIONEL [facility] 2021-08-13 2021-08-15 Inpatient P LINDA [facility] KEATON [id number] Univers 19:46:00 16:49:00 MERI [facility] 2021-08-13 2021-08-15 Hospital JulianLionel mcneal [id number] Univers 19:46:00 16:49:00 Encounter Meri Mckeon [id number] [facility] 4.2.7.2.686 [place] as [id number] [address] 2021-08-13 2021-08-13 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 [facility] 1.2 .840.114 [id number] Univers 09:06:02 09:31:53 Visit Lionel Jordan REPAIRER HELPER [id number] ity [facility] [id number] [place] as MATERNAL [id number] Med ical & CHILD [address] [place] [address] 2021-08-13 2021-08-13 Outpatient P JULIAN [facility] [id number] Univers 09:00:00 09:00:00 [facility] 2021-08-13 2021-08-13 Telephone [facility] [id number] Univers 00:00:00 00:00:00 Petra N REPAIRER HELPER [id number] it y of REGIONAL [id number] [place] as MATERNAL [id number] [facility] & CHILD [address] [place] [address] 2021-08-10 2021-08-10 Outpatient Deep PATE [facility] [id number] Univers 13:00:00 13:00:00 PETRA garcía [facility] 2021-08-10 2021-08-10 [facility]patient [facility] [id number] Univers 12:45:00 12:45:00 PETRA garcía [facility] 2021-08-10 2021-08-10 Outpatient Deep PATE [facility] [id number] Univers 12:45:00 12:45:00 PETRA garcía [facility] 2021-08-09 2021-08-09 Telephone [facility] [id number] [id number] Univers 00:00:00 00:00:00 Petra N REPAIRER HELPER [id number] it y of REGIONAL 4.2.7.2.686 [place] as MATERNAL [id number] [facility] & CHILD [address] [place] [address] 2021-08-06 2021-08-06 Outpatient Deep PATE [facility] [id number] Univers 09:30:00 10:35:00 PETRA garcía [facility] 2021-08-06 2021-08-06 Routine [facility] [id number] Univers 09:18:52 10:35:00 Petra N REPAIRER HELPER [id number] i ty of Visit REGIONAL 4.2.7.2.686 Terry as MATERNAL [id number] [facility] & CHILD [address] [place] [address] 2021-08-06 2021-08-06 Outpatient Deep [facility] [id number] Univers 09:00:00 09:00:00 PETRA garcía [facility] 2021-08-03 2021-08-03 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 Ultrasound, [facility] 1.2 .840.114 [id number] Univers 10:35:16 11:05:16 Visit Lionel Jordan [id number] ity [facility] 4.2.7.2.686 Jer ESCALONA [id number] La dical [address] 2021-08-03 2021-08-03 Outpatient P JULIAN [facility] [id number] Univers 10:30:00 10:30:00 LIONEL [facility] 2021-07-28 2021-07-28 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 Ultrasound, [facility] 1.2 .840.114 [id number] Univers 09:41:41 10:11:41 Visit Lionel Jordan REPAIRER HELPER [id number] ity of Jihan Bernal REGIONAL 4.2.7.2.686 [place] MATERNAL [id number] [facility] ical & CHILD [address] [place] [address] 2021-07-28 2021-07-28 Outpatient P DOLORES [facility] [id number] Univers 09:30:00 09:30:00 JIHAN [facility] 2021-07-27 2021-07-27 Outpatient R [facility] [id number] Univers 14:45:00 14:45:00 DANDRE [facility] 2021-07-23 2021-07-23 Outpatient R [facility] [id number] Univers 15:30:00 15:30:00 [facility] 2021-07-22 2021-07-23 Outpatient P CALE [facility] [id number] Univers 12:00:00 07:48:59 TK [facility] 2021-07-22 2021-07-22 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 Ultrasound, [facility] 1.2 .840.114 [id number] Univers 11:34:52 12:04:52 Visit Lionel Jordan REPAIRER HELPER 350.1.13.10 ity Tk Madsen REGIONAL 4.2.7.2 .686 [place] MATERNAL [id number] [facility] & CHILD [address] [place] [address] 2021-07-22 2021-07-22 Routine [facility] [id number] Univers 10:29:06 10:44:06 Petra N REPAIRER HELPER 350.1.13.10 i ty of Visit REGIONAL [id number] [place] as MATERNAL [id number] [facility] & CHILD [address] [place] [address] 2021-07-20 2021-07-20 Outpatient R RIO [facility] [id number] Univers 15:30:00 15:30:00 PETRA saturnino [facility] 2021-07-15 2021-07-15 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 Ultrasound, [facility] 1.2 .840.114 [id number] Univers 08:56:37 09:26:37 Visit Julian Lionel F REPAIRER HELPER [id number] ity of REGIONAL [id number] [place] as MATERNAL [id number] [address] 2021-07-15 2021-07-15 Outpatient P JULIAN [facility] [id number] Univers 09:00:00 09:00:00 LIONEL myriamsaturnino [facility] 2021-07-14 2021-07-14 Outpatient [facility] [id number] Univers 15:30:00 16:04:00 PETRA saturnino [facility] 2021-07-14 2021-07-14 Routine [facility] [id number] Univers 15:11:25 16:04:00 Petra Damon REPAIRER HELPER 350.1.13.10 i ty of Visit REGIONAL 4.2.7.2.686 [place] as MATERNAL [id number] [facility] & [address] 2021-07-09 2021-07-09 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 Ultrasound, [facility] 1.2.840.114 [id number] Univers 09:30:00 10:00:00 [facility] REPAIRER HELPER 350.1.13.10 it y of REGIONAL [id number] [place] as MATERNAL [id number] [facility] & CHILD [address] [place] [address] 2021-07-09 2021-07-09 Out[facility] [id number] Univers 09:30:00 09:30:00 PETRA garcía [facility] 2021-07-06 2021-07-06 Outpatient R RIO [facility] [id number] Univers 14:15:00 14:25:47 PETRA garcía [facility] 2021-07-06 2021-07-06 Routine [facility] [id number] Univers 13:44:08 13:59:08 Petra Jose REPAIRER HELPER 350.1.13.10 i ty of Visit [facility] 4.2.7.2.686 Terry as MATERNAL [id number] [facility]ILD [address] [place] [address] 2021-07-05 2021-07-05 Telephone [facility] 1.2.840.114 [id number] Univers 00:00:00 00:00:00 Petra Jose REPAIRER HELPER 350.1.13.10 it y of [facility] 4.2.7.2.686 Terry as MATERNAL [id number] [facility] & [address] 2021-06-30 2021-06-30 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 Ultrasound, [facility] 1.2 .840.114 [id number] Univers 09:25:08 09:55:08 Visit Lionel Jordan [place] 350.1.13.10 ity [facility] 4.2.7.2.686 [place] Professio [id number] [place] dic[address] 2021-06-30 2021-06-30 Outpatient P [facility] [id number] Univers 09:30:00 09:30:00 ity [facility] 2021-06-30 2021-06-30 Outpatient R [facility] [id number] Univers 09:00:00 09:00:00 ity [facility] 2021-06-30 2021-06-30 Case [facility] 1.2.840.114 [id number] Univers 00:00:00 00:00:00 Management Su Valenzuela REPAIRER HELPER 350.1.13.10 ity of [facility] 4.2.7.2.686 Terry as MATERNAL [id number] [facility] & [address] 2021-06-25 2021-06-25 Outpatient [facility] [id number] Univers 08:30:00 08:30:00 PETRA garcía [facility] 2021-06-10 2021-06-10 Routine [facility] [id number] Univers 15:32:12 16:01:16 Petra N REPAIRER HELPER 350.1.13.10 i ty of Visit [facility] 4.2.7.2.686 Terry as MATERNAL [id number] [facility] & CHILD [address] [place] [address] 2021-06-10 2021-06-10 Outpatient Deep PATE [facility] [id number] Univers 15:30:00 15:30:00 PETRA garcía [facility] 2021-06-10 2021-06-10 Outpatient Deep [facility] [id number] Univers 12:45:00 12:45:00 PETRA garcía [facility] 2021-05-20 2021-05-20 Routine [facility] [id number] Univers 10:41:43 11:40:05 Petra Damon REPAIRER HELPER 350.1.13.10 i ty of Visit REGIONAL 4.2.7.2.686 Terry as MATERNAL [id number] [facility] ical & CHILD [address] [place] [address] 2021-05-20 2021-05-20 Outpatient Deep [facility] [id number] Univers 10:45:00 10:45:00 PETRA garcía [facility] 2021-05-20 2021-05-20 Orders Doctor NARAYAN 1.2.840.114 [id number] Univers 00:00:00 00:00:00 Only Unassigned, MIRIAM 350.1.13.10 ity of [place] [facility] 4.2.7.2.686 Terry as [id number] [address] 2021-04-27 2021-04-27 Outpatient Deep PATE [facility] [id number] Univers 12:45:00 12:45:00 PETRA garcía [facility] 2021-04-21 2021-04-21 Outpatient Deep [facility] [id number] Univers 08:45:00 08:45:00 PETRA garcía [facility] 2021-04-13 2021-04-13 Outpatient [facility] [id number] Univers 10:45:00 10:45:00 PETRA garcía [facility] 2021-04-09 2021-04-09 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 Ultrasound, [facility] 1.2 .840.114 [id number] Univers 09:01:49 10:02:53 Visit Jihan Bernal [place] 350.1.13.10 ity [facility] 4.2.7.2.[place] Profess[place] [id number] La dical [address] 2021-04-09 2021-04-09 Outpatient R [facility] [id number] Univers 09:00:00 09:00:00 ity [facility] 2021-03-16 2021-03-16 Routine [facility] [id number] Univers 10:44:07 11:38:03 Petra Jose REPAIRER HELPER 350.1.13.10 i ty of Visit [facility] 4.2.7.2.686 Terry as MATERNAL [id number] Med ical & CHILD [address] [place] [address] 2021-03-16 2021-03-16 Outpatient Deep [facility] [id number] Univers 10:45:00 10:45:00 PETRA garcía [facility] 2021-03-11 2021-03-11 Outpatient R [facility] [id number] Univers 10:00:00 10:00:00 PETRA garcía [facility] 2021-02-15 2021-02-15 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 Lab, [facility] UNIVERSIT [id number] [id number] Univers 09:00:32 09:27:50 Visit Sandy Laguna Gillis [facility] 350.1 .13.10 ity of [facility] 4.2.7.2.686 [place] [id number] [address] [place] [address] 2021-02-15 2021-02-15 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 1, [facility] Us Room UNIVERSIT 1 .2.840.114 [id number] Univers 08:12:00 08:56:13 Visit Elis Schofield [facility] 350.1 .13.10 ity of CLINICS 4.2.7.2.686 [place] [id number] [facility] [address] 2021-02-15 2021-02-15 Outpatient R [facility] [id number] Univers 08:45:00 08:45:00 ity of [facility] 2021-02-15 2021-02-15 EDIE StuartIT [id number] Univers 00:00:00 00:00:00 Management [facility] [id number] ity of CLINICS 4.2.7.2.686 [place] [id number] [facility] [address] 2021-02-09 2021-02-09 Routine [facility] [id number] [id number] Univers 14:09:03 14:24:03 Petra N REPAIRER HELPER 350.1.13.10 i ty of Visit REGIONAL 4.2.7.2.686 Terry as MATERNAL [id number] Med ical & CHILD [address] [place] [address] 2021-02-09 2021-02-09 [facility] [id number] Univers 14:15:00 14:15:00 PETRA ity [facility] 2021-02-09 2021-02-09 [facility] [id number] Univers 09:00:00 09:00:00 PETRA itsaturnino [facility] 2021-01-12 2021-01-12 Initial Rio NMVIKRAM 1.2.917.359 [id number] Univers 12:58:29 13:54:36 Petra N REPAIRER HELPER 350.1.13.10 i ty of Visit REGIONAL 4.2.7.2.686 Terry as MATERNAL [id number] [facility] & CHILD [address] [place] [address] 2021-01-12 2021-01-12 Outpatient R [facility] [id number] Univers 12:30:00 12:30:00 ity [facility] 2021-01-12 2021-01-12 Orders Doctor NARAYAN 1.2.840.114 [id number] Univers 00:00:00 00:00:00 Only Unassigned, MIRIAM 350.1.13.10 ity of [place] [facility] 4.2.7.2.686 Terry as [id number] [place] [address] [place] 2020-11-02 2020-11-02 Outpatient R RIO [facility] [id number] Univers 09:45:00 09:45:00 PETRA ity of [facility] 2020-10-12 2020-10-12 Outpatient R [facility] [id number] Univers 09:45:00 09:45:00 ity of [facility] 2020-10-06 2020-10-06 Outpatient R [facility] [id number] Univers 09:45:00 09:45:00 ity of [facility] 2020-09-14 2020-09-14 Outpatient R AMY [facility] [id number] Univers 08:15:00 08:15:00 SERENITY ity o f [facility] 2020-08-26 2020-08-26 Telephone Nurse, Sylvie Jett 1.2.840.114 [id number] Univers 00:00:00 00:00:00 Urgent Pediatric 350.1.13.10 ity of [place].2.686 [place] [id number] [address] Care [facility] 2020-08-25 2020-08-25 Outpatient R MOOK, [facility] [id number] Univers 18:15:00 18:15:00 ATTENDING ity of [facility] 2020-08-25 2020-08-25 Laboratory Nurse, Sylvie Jett 1.2.8 40.114 [id number] Univers 18:01:17 18:11:01 Only Unknown, Attending Pediatric 350.1.13. 10 ity of [place] s and 4.2.7.2.686 [place] Adult [phone] [address] Care [facility] 2020-08-20 2020-08-20 Routine Amy [facility] 1.2.840.114 [id number] Univers 09:01:27 09:20:29 Serenity Adame REPAIRER HELPER 350.1.13.10 ity of Visit REGIONAL 4.2.7.2.686 Terry as MATERNAL [phone] Med ical & CHILD [address] [place] [address] 2020-08-20 2020-08-20 Outpatient R AMY [facility] [id number] Univers 09:00:00 09:00:00 SERENITY garcía o f [facility] 2020-08-05 2020-08-05 1.2.840.1 1.2.840.114 [id number] Univers 00:00:00 00:00:00 Encounter 78064.1.1 350.1.13.10 ity of 3.104.2.7 [place]2.696 [place] .[id number] 570 [facility] 2020-08-04 2020-08-04 Outpatient Helga PATE [facility] [id number] Univers 11:30:00 11:30:00 PETRA garcía [facility] 2020-08-04 2020-08-04 Outpatient Deep [facility] [id number] Univers 10:00:00 10:00:00 PETRA garcía [facility] 2020-08-04 2020-08-04 1.2.840.1 1.2.840.114 [id number] Univers 00:00:00 00:00:00 Encounter 92701.1.1 350.1.13.10 ity of 3.104.2.7 [place].696 [place] .[id number] 570 [facility] 2020-07-29 2020-08-01 [facility] SYLVAIN Borja 1.2.868.048 [id number] Univers 21:19:00 17:51:00 Encounter Kevin PINEDA 350.1.13.[address] [facility] 4.2.7.2.686 Terry as [id number] [facility] [address] [place] 2020-07-29 2020-07-29 Outpatient Helga PATE [facility] [id number] Univers 10:30:00 10:30:00 PETRA garcía [facility] 2020-07-29 2020-07-29 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 Ultrasound, [facility] 1.2 .840.114 [id number] Univers 09:41:20 10:11:20 Visit Petra Pate REPAIRER HELPER 350.1.13.10 ity of [place] 4.2.7.2 .686 [place] MATERNAL [id number] Med ical & CHILD 369 [facility] 2020-07-29 2020-07-29 [facility] 1.2.773.905 [id number] Univers 08:26:50 09:09:20 Petra N REPAIRER HELPER 350.1.13.10 i ty of Visit REGIONAL 4.2.7.2.686 Terry as MATERNAL [phone] Med ical & CHILD 107 [facility] 2020-07-29 2020-07-29 Telephone [facility] 1.2.840.114 [id number] Univers 00:00:00 00:00:00 Petra N REPAIRER HELPER 350.1.13.10 it y of REGIONAL 4.2.7.2.686 Terry as MATERNAL [id number] Med ical & CHILD [address] [place] [address] 2020-07-28 2020-07-28 Telephone [facility] 1.2.840.114 [id number] Univers 00:00:00 00:00:00 Petra Jose REPAIRER HELPER 350.1.13.10 it y of REGIONAL 4.2.7.2.686 Terry as MATERNAL [id number] Med ical & CHILD [address] [place] [address] 2020-07-27 2020-07-27 [facility] 1.2.273.844 [id number] Univers 12:45:11 13:37:16 Petra N REPAIRER HELPER 350.1.13.10 i ty of Visit REGIONAL 4.2.7.2.686 Terry as MATERNAL [id number] Med ical & CHILD [address] [place] [address] 2020-07-27 2020-07-27 Out[facility] [id number] Univers 13:15:00 13:15:00 PETRA garcía of [facility] 2020-07-27 2020-07-27 Telephone [facility] 1.2.840.114 [id number] Univers 00:00:00 00:00:00 Petra N REPAIRER HELPER 350.1.13.10 it y of REGIONAL 4.2.7.2.686 Terry as MATERNAL [id number] Med ical & CHILD [address] [place] [address] 2020-07-24 2020-07-24 Routine [facility] 1.2.098.099 [id number] Univers 07:57:12 08:47:30 Petra N REPAIRER HELPER 350.1.13.10 i ty of Visit REGIONAL 4.2.7.2.686 Terry as MATERNAL [id number] [facility] & [address] 2020-07-24 2020-07-24 [facility] [id number] Univers 08:30:00 08:30:00 PETRA garcía [facility] 2020-07-21 2020-07-21 Outpatient R [facility] [id number] Univers 13:30:00 13:30:00 PETRA garcía [facility] 2020-07-21 2020-07-21 [facility] 1.2.641.953 [id number] Univers 09:32:31 10:16:19 Petra N REPAIRER HELPER 350.1.13.10 i ty of Visit REGIONAL 4.2.7.2.686 Terry as MATERNAL [id number] [address] 2020-07-17 2020-07-17 Outpatient R [facility] [id number] Univers 08:30:00 08:30:00 PETRA garcía [facility] 2020-07-17 2020-07-17 [facility] 1.2.311.802 [id number] Univers 07:51:57 08:27:43 Petra N REPAIRER HELPER 350.1.13.10 i ty of Visit REGIONAL 4.2.7.2.686 Terry as MATERNAL [id number] [address] 2020-07-16 2020-07-16 Outpatient R [facility] [id number] Univers 08:15:00 08:15:00 PETRA garcía [facility] 2020-07-14 2020-07-14 Outpatient R [facility] [id number] Univers 10:30:00 10:30:00 PETRA garcía [facility] 2020-07-14 2020-07-14 [facility] 1.2.881.397 [id number] Univers 08:59:04 09:43:39 Petra N REPAIRER HELPER 350.1.13.10 i ty of Visit REGIONAL 4.2.7.2.686 Terry as MATERNAL [id number] [facility] ical & CHILD [address] [place] [address] 2020-07-14 2020-07-14 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 Ultrasound, Sarahsparkle [facility] 1.2 .840.114 [id number] Univers 08:29:47 08:59:47 Visit Petra Pate REPAIRER HELPER 350.1.13.10 ity of REGIONAL 4.2.7.2.686 Terry as MATERNAL [id number] [facility] ical & CHILD 369 [facility] 2020-07-09 2020-07-09 Routine Rio [facility] 1.2.387.719 [id number] Univers 07:55:32 08:50:32 Petra Jose REPAIRER HELPER 350.1.13.10 i ty of Visit REGIONAL 4.2.7.2.686 Terry as MATERNAL [id number] [facility] & CHILD [address] [place] [address] 2020-07-09 2020-07-09 Outpatient R RIO [facility] [id number] Univers 08:45:00 08:45:00 [facility] 2020-07-06 2020-07-06 Routine Rio [facility] 1.2.039.435 [id number] Univers 14:29:38 15:31:43 Petra Jose REPAIRER HELPER 350.1.13.10 i ty of Visit REGIONAL 4.2.7.2.686 Terry as MATERNAL [id number] [facility] & CHILD [address] [place] [address] 2020-07-06 2020-07-06 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 [facility] 1.2 .840.114 [id number] Univers 10:31:21 11:01:21 Visit Lionel Jordan REPAIRER HELPER 350.1.13.10 ity of REGIONAL 4.2.7.2.686 Terry as MATERNAL [id number] [facility] ical & CHILD [address] [place] [address] 2020-07-06 2020-07-06 Outpatient P [facility] [id number] Univers 10:30:00 10:30:[facility] 2020-07-06 2020-07-06 Telephone Rio [facility] 1.2.840.114 [id number] Univers 00:00:00 00:00:00 Petra Jose REPAIRER HELPER 350.1.13.10 it y of REGIONAL 4.2.7.2.686 Terry as MATERNAL [id number] [facility] ical & CHILD [address] [place] [address] 2020-06-30 2020-06-30 Routine Serenity Reyes Deep [facility] 1.2.840 .114 [id number] Univers 09:38:37 09:53:37 Petra Pate REPAIRER HELPER 350.1.13.10 ity of Visit REGIONAL 4.2.7.2.686 Terry as MATERNAL [id number] Med ical & CHILD [address] [place] [address] 2020-06-30 2020-06-30 Outpatient R RIO [facility] [id number] Univers 09:30:00 09:30:00 PETRA ricky [facility] 2020-06-16 2020-06-16 Routine Rio [facility] 1.2.594.376 [id number] Univers 10:00:25 10:49:42 Petra Jose REPAIRER HELPER 350.1.13.10 i ty of Visit REGIONAL 4.2.7.2.686 Terry as MATERNAL [id number] [facility] ical & CHILD [address] [place] [address] 2020-06-16 2020-06-16 Outpatient R RIO [facility] [id number] Univers 10:30:00 10:30:00 PETRA itsaturnino [facility] 2020-06-09 2020-06-09 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 Ultrasound, [facility] 1.2 .840.114 [id number] Univers 08:15:57 09:15:57 Visit Lilia Sandoval REPAIRER HELPER 350.1.13.10 ity of REGIONAL 4.2.7.2.686 Terry as MATERNAL [id number] [facility] ical & CHILD 369 [facility] 2020-06-09 2020-06-09 Outpatient P [facility] [id number] Univers 08:00:00 08:00:00 ity [facility] 2020-06-03 2020-06-03 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 Lab, [facility] 1.2.840. 114 [id number] Univers 07:46:36 08:06:08 Visit Akinsipe, Miya C REPAIRER HELPER 350.1.13. 10 ity of REGIONAL 4.2.7.2.686 Terry as MATERNAL [id number] [facility] ical & CHILD [address] [place] [address] 2020-06-03 2020-06-03 Outpatient R [facility] [id number] Univers 07:45:00 07:45:00 ity [facility] 2020-06-02 2020-06-02 Routine [facility] 1.2.681.922 [id number] Univers 15:33:02 16:20:01 Petra N REPAIRER HELPER 350.1.13.10 i ty of Visit REGIONAL 4.2.7.2.686 Terry as MATERNAL [id number] [facility] & CHILD [address] [place] [address] 2020-06-02 2020-06-02 Out[facility] [id number] Univers 15:30:00 15:30:00 [facility] 2020-05-22 2020-05-22 Outpatient R [facility] [id number] Univers 13:30:00 13:30:00 [facility] 2020-05-13 2020-05-13 Outpatient P [facility] [id number] Univers 14:15:00 14:15:00 ity [facility] 2020-05-12 2020-05-12 Outpatient R [facility] [id number] Univers 11:00:00 11:00:00 PETRA ity [facility] 2020-05-01 2020-05-01 Outpatient P [facility] [id number] Univers 11:00:00 11:00:00 ity [facility] 2020-04-14 2020-04-14 Initial [facility] 1.2.570.711 [id number] Univers 13:38:40 15:04:24 Petra N REPAIRER HELPER 350.1.13.10 i ty of Visit REGIONAL 4.2.7.2.686 Terry as MATERNAL [id number] [facility] & [address] 2020-04-14 2020-04-14 Outpatient R [facility] [id number] Univers 13:15:00 13:15:00 ity [facility] 2020-04-14 2020-04-14 Orders Doctor SYLVAIN 1.2.840.114 [id number] Univers 00:00:00 00:00:00 Only Unassigned, MIRIAM 350.1.13.10 ity of [place] [facility] 4.2.7.2.686 Terry as [id number] [place] [address] [place] Results Test Description Test Time Test Comments [...] 33.6 g/dL 31.6-35.1 RDW-SD (test code = 28708-0) 35.8 fL 39.0-49.9 L RDW-CV (test code = 788-0) 11.9 % 12.0-15.5 L PLT (test code = 777-3) See_Comment [Au tomated message] The system which ge nerated this result transmit brenna reference range: 166 - 35 8 10*3/?L. The reference range was not used to interpret th is result as normal/abnormal . MPV (test code = 62378-0) 11.0 fL 9.5-12.9 NRBC/100 WBC (test code = See_Comment [ Automated message] The 5405469856) system which [employer] nerated this result transmit brenna reference range: 0.0 - 10 .0 /100 WBCs. The reference r quirino was not used to interpr et this result as normal/abnor mal. NRBC x10^3 (test code = <0.01 See_Comment [Au tomated message] The 5589382803) system which [employer] nerated this result transmit brenna reference range: 10*3/?L. The reference range was not u sed to interpret this result as normal/abnormal . GRAN MAT (NEUT) % (test code 66.5 % = 770-8) IMM GRAN % (test code = 0.40 % 1316451710) LYMPH % (test code = 736-9) 24.7 % MONO % (test code = 5905-5) 7.4 % EOS % (test code = 713-8) 0.6 % BASO % (test code = 706-2) 0.4 % GRAN MAT x10^3(ANC) (test 7.50 10*3/uL 1.88-7.09 H code = 7339554748) IMM GRAN x10^3 (test code = 0.05 10*3/uL 0.00-0.06 5101486699) LYMPH x10^3 (test code = 2.79 10*3/uL 1.32-3.29 731-0) MONO x10^3 (test code = 0.84 10*3/uL 0.33-0.92 742-7) EOS x10^3 (test code = 0.07 10*3/uL 0.03-0.39 711-2) BASO x10^3 (test code = 0.04 10*3/uL 0.01-0.07 704-7) Lab Interpretation (test Abnormal code = 82157-1) [id number] 16:03:12 Test Item Value Reference Range Interpretation Comments Syphilis IgG/IgM (test Non-reactive Non-reactive code = 78231-8) KIRILL (test code = KIRILL) Non-reactive - No serologic evidence of T. pallidum infection. Cannot exclude incubating or early syphilis. Submit a second specimen in 2-4 weeks if syphilis is clinically suspected. Equivocal - Further testing to follow. Reactive - Further testing to follow. Lab Interpretation (test Normal code = 17237-5) [facility] IMMUNE [id number] 15:52:16 Test Item Value Reference Range Interpretation Comments RHIG CANDIDATE? No- see comment Patient i s not a (test code = candidate for R hIg- 5055) Patient is Rh Positive.Perfor med at [facility] Laboratory Services - [facility] Blood [address] [address]Mvhn Free: [phone] A No. [id number] [facility] CORD [id number] 13:26:48 Test Item Value Reference Range Interpretation Comments VENOUS BASE EXCESS, mEq/L CORD (test code = 2929301906) VENOUS PH, CORD (test 7.25-7.45 code = 4042595477) VENOUS PC02, CORD See_Comment [Automate d message] The (test code = system which ge nerated 1743610644) this result tra nsmitted reference range : 27 - 49 mmHg. The refer ence range was not used to interpret this result as normal/abnormal . VENOUS PO2, CORD (test See_Comment [Aut omated message] The code = 3842502820) system wh ich generated this result tra nsmitted reference range : 17 - 41 mmHg. The refer ence range was not used to interpret this result as normal/abnormal . VENOUS BICARBONATE, See_Comment QUES [Au tomated message] CORD (test code = The system which generated 4088048656) this result tra nsmitted reference range : 12 - 29 mEq/L. The refe rence range was not used to interpret this result as normal/abnormal . [facility] [id number] 13:25:53 Test Item Value Reference Range Interpretation Comments BASE EXCESS, CORD mEq/L QUES (test code = 0292275927) AC PH, CORD (BEAKER) 7.18-7.38 (test code = 4183084303) PC02, CORD (test code See_Comment [Auto mated message] The = 1035103725) system which g enerated this result transmit brenna reference range : 32 - 66 mmHg. The refer ence range was not used to interpret this result as normal/abnormal . PO2, CORD (test code See_Comment [Autom ated message] The = 9799598913) system which g enerated this result transmit brenna reference range : 10 - 30 mmHg. The refer ence range was not used to interpret this result as normal/abnormal . BICARBONATE, CORD See_Comment [Automate d message] The (test code = system which ge nerated this 5685097721) result transmit brenna reference range : 17 - 27 mEq/L. The refe rence range was not used to interpret this result as normal/abnormal . [facility] HospitalHepatitis B Surface [id number] 04:31:18 Test Item Value Reference Range Interpretation Comments HBsAg Semi-Quantitative (test code = Negative Negative 5195-3) [facility] and Screen - ONCE [id number] 04:15:35 Test Item Value Reference Range Interpretation Comments ABO & RH (test code O POSITIVE Performe d at [facility] = 20) Laboratory Serv [facility] [address] [facility] s [address]Cbke Free: [phone] A No. [id number] IAT (test code = Negative Performed a t [facility] 1185) Laboratory Serv [facility] [address] [facility] s [address]Fdmb Free: [phone] A No. [id number] [facility] Hospital[facility] WITH [id number] 03:37:52 Test Item Value Reference Range Interpretation Comments WBC (test code = See_Comment [Automated 2290-2) message] The sy stem which generated this result transmitted reference range : 4.30 - 11.10 10*3/?L. The reference range was not used to interpret this result as normal/abnormal . RBC (test code = See_Comment L [Automated 049-8) message] The sy stem which generated this [...] (test code = 36.1 fL 39.0-49.9 L 05880-9) RDW-CV (test code = 12.0 % 12.0-15.5 788-0) PLT (test code = See_Comment [Automated 777-3) message] The sy stem which generated this result transmitted reference range : 166 - 358 10*3/ ?L. The reference r quirino was not used to interpret this result as normal/abnormal . MPV (test code = 10.8 fL 9.5-12.9 90505-7) NRBC/100 WBC (test See_Comment [Automat ed code = 0193617188) message] The system which generated this result transmitted reference range : 0.0 - 10.0 /100 WBCs. The refer ence range was not u sed to interpret th is result as normal/abnormal . NRBC x10^3 (test code <0.01 See_Comment [Auto mated = 8397372899) message] The s ystem which generated this result transmitted reference range : 10*3/?L. The reference range was not used to interpret this result as normal/abnormal . GRAN MAT (NEUT) % 67.0 % (test code = 770-8) IMM GRAN % (test code 0.30 % = 6168730643) LYMPH % (test code = 26.1 % 736-9) MONO % (test code = 5.7 % 5905-5) EOS % (test code = 0.7 % 713-8) BASO % (test code = 0.2 % 706-2) GRAN MAT x10^3(ANC) 6.55 10*3/uL 1.88-7.09 (test code = 6518059208) IMM GRAN x10^3 (test 0.03 10*3/uL 0.00-0.06 code = 5484722781) LYMPH x10^3 (test code 2.55 10*3/uL 1.32-3.29 = 731-0) MONO x10^3 (test code 0.56 10*3/uL 0.33-0.92 = 742-7) EOS x10^3 (test code = 0.07 10*3/uL 0.03-0.39 711-2) BASO x10^3 (test code <0.03 0.01-0.07 = 704-7) Lab Interpretation Abnormal (test code = 45129-0) [facility]
[2022-06-27] MEDS ORDERED: DIPHENHYDRAMINE 25 MG TAB/CAP ONE (13:26)
[2022-06-27] MEDS ORDERED: FAMOTIDINE 20 MG TAB ONE (13:26)
[2022-06-27] MEDS ORDERED: predniSONE 20 MG TAB ONE (13:26)
--- NOTE | 2022-06-27 14:17 | EDPHYS ---
Physician Documentation [facility] Name: Sindhu Hudson Age: 21 yrs Sex: Female : 2000 Arrival Date: 06/27/2022 Time: 12:52 Bed 11 Private MD: ED Physician Torres Kimball HPI: 06/27 13:20 This 21 yrs old Female presents to ER via Ambulatory with complaints of jh7 Allergic Reaction, Fever, chills/bodyaches. 13:20 The patient presents with rash, of the chest, Periorbital swelling. Onset: The jh7 symptoms/episode began/occurred 3 day(s) ago. Patient reports flu exposure fever, and body aches for the past 3 days. States that this morning she woke up with hives on her chest and swelling under her eyes.. 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 - Social history:: Smoking status: Patient denies any tobacco usage or history of. ROS: 13:20 Neck: Negative for injury, pain, and swelling, Cardiovascular: Negative for chest pain, jh7 palpitations, and edema, Respiratory: Negative for shortness of breath, cough, wheezing, and pleuritic chest pain, Abdomen/GI: Negative for abdominal pain, nausea, vomiting, diarrhea, and constipation, Back: Negative for injury and pain, MS/Extremity: Negative for injury and deformity, Skin: Negative for injury, rash, and discoloration, Neuro: Negative for headache, weakness, numbness, tingling, and seizure. 13:20 Constitutional: Positive for body aches, chills, fatigue, fever. 13:20 Eyes: Positive for swelling, Negative for pain, visual disturbance. 13:20 All other systems are negative. Exam: 13:20 Constitutional: This is a well developed, well nourished patient who is awake, alert, jh7 and in no acute distress. Neck: Trachea midline, no thyromegaly or masses palpated, and no cervical lymphadenopathy. Supple, full range of motion without nuchal rigidity, or vertebral point tenderness. No Meningismus. Cardiovascular: Regular rate and rhythm with a normal S1 and S2. No gallops, murmurs, or rubs. Normal PMI, no JVD. No pulse deficits. Respiratory: Lungs have equal breath sounds bilaterally, clear to auscultation and percussion. No rales, rhonchi or wheezes noted. No increased work of breathing, no retractions or nasal flaring. Abdomen/GI: Soft, non-tender, with normal bowel sounds. No distension or tympany. No guarding or rebound. No evidence of tenderness throughout. Back: No spinal tenderness. No costovertebral tenderness. Full range of motion. Skin: Warm, dry with normal turgor. Normal color with no rashes, no lesions, and no evidence of cellulitis. MS/ Extremity: Pulses equal, no cyanosis. Neurovascular intact. Full, normal range of motion. Neuro: Awake and alert, GCS 15, oriented to person, place, time, and situation. Motor strength 5/5 in all extremities. Sensory grossly intact. Normal gait. 13:20 Head/face: 13:20 Eyes: Periorbital structures: swelling, that is mild, bilaterally, Mild periorbital swelling under bilateral eyes with no erythema, tenderness, or visual changes.. Vital Signs: 13:17 BP 123 / 76; Pulse 79; Resp 16; Temp 98.6(O); Pulse Ox 100% ; Weight 68.04 kg; Height 5 vg1 ft. 1 in. (154.94 cm); Pain 6/10; 14:30 BP 110 / 73; Pulse 76; Resp 17; Pulse Ox 99% on R/A; kr3 13:17 Body Mass Index 28.34 (68.04 kg, 154.94 cm) vg1 MDM: 13:03 Patient medically screened. [facility] 14:15 Differential diagnosis: angioedema, urticaria, Influenza. Data reviewed: vital signs, [facility] nurses notes, lab test result(s). Data interpreted: Pulse oximetry: is 99 %. Interpretation: normal. Counseling: I had a detailed discussion with the patient and/or guardian regarding: the historical points, exam findings, and any diagnostic results supporting the discharge/admit diagnosis, to return to the emergency department if symptoms worsen or persist or if there are any questions or concerns that arise at home. Response to treatment: the patient's symptoms have markedly improved after treatment, Swelling resolved after medications. ED course: Inform the patient that she was technically out of the window for Tamiflu, but she asked if she could take it anyway. Advised her to take Tylenol or ibuprofen as needed for fever, increase p.o. fluid intake, and rest while recovering from the flu.. 06/27 13:09 Order name: Flu; Complete Time: 14:13 [facility] Administered Medications: 13:27 Drug: predniSONE 40 mg Route: PO; vg1 14:32 Follow up: Response: No adverse reaction kr3 13:28 Drug: Benadryl (diphenhydrAMINE) 25 mg Route: PO; vg1 14:32 Follow up: Response: No adverse reaction kr3 13:28 Drug: Pepcid (famotidine) 20 mg Route: PO; vg1 14:32 Follow up: Response: No adverse reaction kr3 Disposition Summary: 06/27/22 14:16 Discharge Ordered Location: Home [facility] Problem: new [facility] Symptoms: have improved [facility] Condition: Stable [facility] Diagnosis - Influenza [facility] Followup: [facility] - With: Private Physician - When: 2 - 3 days - Reason: Recheck today's complaints Discharge Instructions: - Discharge Summary Sheet [facility] - Influenza, Adult [facility] Forms: - Medication Reconciliation Form [facility] - Thank You Letter [facility] Prescriptions: - Tamiflu 75 mg Oral Capsule - take 1 tablet by ORAL route every 12 hours for 5 days; 10 tablet; Refills: 0, [facility] Product Selection Permitted Addendum: 06/30/2022 06:28 Co-signature as Attending Physician, Torres Kimball MD. r n Signatures: Dispatcher [employer] EDTorres Goddard MD MD rn Garcia, Victoria RN RN vg1 Patti Howell FNP TEST LEAD [facility] Dianelys Broderick RN kr3
--- NOTE | 2022-06-27 14:17 | ER ---
Nurse's Notes [facility] Name: Sindhu Hudson Age: 21 yrs Sex: Female : 2000 Arrival Date: 06/27/2022 Time: 12:52 Bed 11 Private MD: Diagnosis: Influenza Presentation: 06/27 13:17 Chief complaint: Patient states: fever, chills, body aches since Monday, also stated vg1 Right eye swelling; denies NVD. Coronavirus screen: Vaccine status: Patient reports being unvaccinated. Client denies travel out of the [place] in the last 14 days. Client presents with at least one sign or symptom that may indicate coronavirus-19. Standard/surgical mask placed on the client. Ebola Screen: Patient negative for fever greater than or equal to 101.5 degrees Fahrenheit, and additional compatible Ebola Virus Disease symptoms Patient denies exposure to infectious person. Onset: The symptoms/episode began/occurred 06/24/22. Anaphylaxis evaluation, no signs or symptoms of anaphylaxis were noted. Initial Sepsis Screen: Does the patient meet any 2 criteria? No. Patient's initial sepsis screen is negative. Does the patient have a suspected source of infection? No. Patient's initial sepsis screen is negative. Risk Assessment: Do you want to hurt yourself or someone else? Patient reports no desire to harm self or others. Onset of symptoms was June 24, 2022. 13:17 Method Of Arrival: Ambulatory vg1 13:17 Acuity: MADELEINE 4 vg1 Triage Assessment: 13:20 General: Appears in no apparent distress. comfortable, Behavior is calm, cooperative. vg1 Pain: Complains of pain in generalize body Pain currently is 6 out of 10 on a pain scale. Respiratory: Airway is patent Respiratory effort is even, unlabored. 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 - Social history:: Smoking status: Patient denies any tobacco usage or history of. Screenin:30 Abuse screen: Denies threats or abuse. Nutritional screening: No deficits noted. kr3 Tuberculosis screening: No symptoms or risk factors identified. Fall Risk None identified. Assessment: 14:29 Reassessment: No changes from previously documented assessment. Patient and/or family kr3 updated on plan of care and expected duration. Pain level reassessed. Patient is alert, oriented x 3, equal unlabored respirations, skin warm/dry/pink. 14:31 Respiratory: Reports cough that is productive, Airway is patent kr3 Vital Signs: 13:17 BP 123 / 76; Pulse 79; Resp 16; Temp 98.6(O); Pulse Ox 100% ; Weight 68.04 kg; Height 5 vg1 ft. 1 in. (154.94 cm); Pain 6/10; 14:30 BP 110 / 73; Pulse 76; Resp 17; Pulse Ox 99% on R/A; kr3 13:17 Body Mass Index 28.34 (68.04 kg, 154.94 cm) vg1 ED Course: 12:52 Patient arrived in ED. am2 13:03 [facility] jh7 13:03 Torres Kimball MD is Attending Physician. jh7 13:20 Triage completed. vg1 13:20 Arm band placed on. vg1 13:21 Flu and/or RSV swab sent to lab. vg1 13:28 Dianelys Broderick, MAINE is Primary Nurse. kr3 13:45 Bed in low position. Call light in reach. Side rails up X 1. kr3 14:30 No provider procedures requiring assistance completed. Patient did not have IV access kr3 during this emergency room visit. Administered Medications: 13:27 Drug: predniSONE 40 mg Route: PO; vg1 14:32 Follow up: Response: No adverse reaction kr3 13:28 Drug: Benadryl (diphenhydrAMINE) 25 mg Route: PO; vg1 14:32 Follow up: Response: No adverse reaction kr3 13:28 Drug: Pepcid (famotidine) 20 mg Route: PO; vg1 14:32 Follow up: Response: No adverse reaction kr3 Medication: 14:31 VIS not applicable for this client. kr3 Outcome: 14:16 Discharge ordered by . jh7 14:31 Discharged to home ambulatory. kr3 14:31 Condition: stable 14:31 Discharge instructions given to patient, Instructed on discharge instructions, follow up and referral plans. medication usage, Demonstrated understanding of instructions, follow-up care, medications, Prescriptions given X 1. 14:32 Patient left the ED. kr3 Signatures: Josselin Esparza Victoria, RN RN vg1 Patti Howell, NEONATAL PEDIATRIC NURSE NEONATAL PEDIATRIC NURSE jh7 Dianelys Broderick RN RN kr3
[2022-06-27 14:38] VITALS: TEMP 98.6
[2022-06-27 14:39] VITALS: BP 110/73; O2SAT 99
== END 2022-06-27 14:32 | disposition home or self-care (01) ==
LOC: ER 12:51
DX: J11.1 Influenza due to unidentified influenza virus with other respiratory manifestations (principal)
CPT/HCPCS: 87804 ×2; 99283; J7512